=== PATIENT | male | born 1970 | race Caucasian/White ===

== ENCOUNTER 2016-08-26 11:04 | Emergency (ER) | payer MEDICARE ==
--- NOTE | 2016-08-26 15:03 | Emergency Department Report ---
<PENELOPE COVINGTON - Last Filed: 08/26/16 21:24> ED Psych HPI - General Chief Complaint: Psych Stated Complaint: DEHYDRATION Time Seen by Provider: 08/26/16 13:10 ED Review of Systems ROS: Stated complaint: DEHYDRATION Other details as noted in HPI ED Course Vital Signs 08/26/16 08/26/16 08/26/16 11:23 19:16 22:45 Temperature 98.3 F 98 F 98 F Pulse Rate 75 71 87 Respiratory 16 18 18 Rate Blood Pressure 160/95 Blood Pressure 153/88 132/75 [Right] O2 Sat by Pulse 97 97 97 Oximetry 08/27/16 08/27/16 01:26 01:28 Temperature 98 F Pulse Rate 87 Respiratory 18 18 Rate Blood Pressure Blood Pressure 153/89 [Right] O2 Sat by Pulse 96 Oximetry - Reevaluation(s) Reevaluation #1: 08/26/16 21:24 PATIENT SLEEPING WELL EASILY AROUSABLE. STILL NOT TALKING. HIS VITAL SIGNS WITHIN NORMAL LIMITS, ANION GAP IS DOWN TO 20 FROM 29 AFTER A LITER OF FLUID. PATIENT WILL TRANSFER BACK TO [facility]. ED Medical Decision Making - Lab Data Result diagrams: 08/26/16 16:08 08/26/16 20:10 Critical care attestation.: If time is entered above; I have spent that time in minutes in the direct care of this critically ill patient, excluding procedure time. ED Disposition Clinical Impression: Dehydration Disposition: [id number]/TX-[id number] PSY HOSP/PSY UNIT Is pt being admited?: No Does the pt Need Aspirin: No Condition: Stable Instructions: Dehydration (ED) Referrals: PRIMARY CARE,MD [Primary Care Provider] - 3-5 Days Time of Disposition: 21:28 <CHERELLE VELEZ - Last Filed: 08/27/16 19:46> ED Psych HPI - General Source: patient, RN/MD, EMS, RN notes reviewed, old records reviewed Mode of arrival: Stretcher - History of Present Illness Initial Comments: Patient is a 45-year-old male who presents to the emergency department not speaking or eating. According to staff at [facility] he has not spoken for the last several days. He is also refusing to eat. Clinically he appears well as vitals are normal. He does not respond to me with voice but does shake his head yes and no. He appears to be alert but difficult to assess orientation. MD Complaint: altered mental status -: Gradual ED Review of Systems Comment: Unobtainable due to pts medical conditions ED Past Medical Hx - Past Medical History Previous Medical History?: Yes Hx Psychiatric Treatment: Yes (schizophrenia, bipolar) ED Physical Exam - General Limitations: No Limitations, Other General appearance: alert - Head Head exam: Present: atraumatic, normocephalic - Eye Eye exam: Present: normal appearance, EOMI - ENT ENT exam: Present: normal exam - Respiratory Respiratory exam: Present: normal lung sounds bilaterally, respiratory distress - Cardiovascular Cardiovascular Exam: Present: regular rate, normal rhythm - GI/Abdominal GI/Abdominal exam: Present: soft, distended - Extremities Exam Extremities exam: Present: normal inspection - Psychiatric Psychiatric exam: Present: flat affect, other (patient is not speaking) ED Medical Decision Making - Lab Data Result diagrams: 08/26/16 16:08 08/26/16 20:10 - Medical Decision Making Patient is a 45-year-old male sent from [facility] for lack of eating and drinking. Patient is clearly being manipulated on clinical exam is he is nodding yes or no but will not speak to me. He has spoken to the pin inserter regulator taking care of him. Plan check CBC and chemistry if this is normal will discharge patient back to [facility] Patient required restraint because he refused lab draw. I discussed this with him and stated that if he were not willing to speak with this than he was on not competent to make his own medical decisions. He clinically does not appear dangerously dehydrated his vital signs are normal. If his labs are normal and plan to discharge him back to [facility] His labs showed an anion gap and he was given a dose of Geodon because he refused to take further medical treatment at this point. 2 L of IV fluids were given and repeat labs showed a closing gap. At this point he was discharged back to [facility]. Portions of this chart were dictated with dictation software. There may be dictation errors contained within this note.
[2016-08-26] MEDS ORDERED: GEODON IM ONE (15:33)
[2016-08-26] MEDS ORDERED: WATER FOR INJ (PF) 10 ML ONE (15:35)
[2016-08-26 16:29] LABS: Basophils % (Auto) 0.6 % (0.0-1.8); Eosinophils % (Auto) 1.8 % (0.0-4.3); Hematocrit 54.8 % (35.5-45.6); Hemoglobin 18.3 gm/dl (11.8-15.2); Mean Corpuscular HGB Conc 33 % (32-34); Mean Corpuscular Hemoglobin 33 pg (28-32); Mean Corpuscular Volume 99 fl (84-94); Platelet Count 149 K/mm3 (140-440); Red Blood Count 5.52 M/mm3 (3.65-5.03)
[2016-08-26 16:41] LABS: Alanine Aminotransferase 15 units/L (7-56); Albumin 4.6 g/dL (3.9-5); Albumin/Globulin Ratio 1.5 %; Alkaline Phosphatase 113 units/L (35-129); Anion Gap 29 mmol/L; Blood Urea Nitrogen 19 mg/dL (9-20); Calcium 9.9 mg/dL (8.4-10.2); Carbon Dioxide 24 mmol/L (22-30); Chloride 97.2 mmol/L (98-107); Glucose 74 mg/dL (75-100); Potassium 4.7 mmol/L (3.6-5.0); Sodium 145 mmol/L (137-145); Total Protein 7.7 g/dL (6.3-8.2)
[2016-08-26] MEDS ORDERED: NACL 0.9% 1000 ML 1,000 ML IV ONE ×2 (16:59→17:00)
[2016-08-26 20:42] LABS: Alanine Aminotransferase 13 units/L (7-56); Albumin 3.8 g/dL (3.9-5); Albumin/Globulin Ratio 1.3 %; Alkaline Phosphatase 96 units/L (35-129); Anion Gap 20 mmol/L; BUN/Creatinine Ratio 17.27; Blood Urea Nitrogen 19 mg/dL (9-20); Calcium 9.1 mg/dL (8.4-10.2); Carbon Dioxide 23 mmol/L (22-30); Glucose 72 mg/dL (75-100); Sodium 139 mmol/L (137-145); Total Protein 6.8 g/dL (6.3-8.2)
[2016-08-27 01:28] VITALS: BP 153/89
== END 2016-08-27 01:31 ==
LOC: ED 11:04
DX: E86.0 Dehydration (principal); F31.9 Bipolar disorder, unspecified; F20.9 Schizophrenia, unspecified
CPT/HCPCS: 36415; 80053; 85025; 99285; J3486